=== PATIENT | female | born 1950 | race Two or more races ===

== ENCOUNTER 2021-09-09 12:47 | Emergency (ER) | payer OTHER, MEDICAID ==
[~2021-09-09] VITALS: Ht 149.9 cm; Wt 59.0 kg
[2021-09-09 13:52] VITALS: BP 128/69
[2021-09-09] MEDS ORDERED: ACETAMINOPHEN 325 MG TAB PO ONE (14:30)
[2021-09-09] MEDS ORDERED: ACET-1080 PO (14:45)
== END 2021-09-09 14:56 | disposition home or self-care (01) ==
LOC: ER 12:47
DX: M23.92 Unspecified internal derangement of left knee (principal)
CPT/HCPCS: 73562